=== PATIENT | female | born 1975 | race Caucasian/White ===

== ENCOUNTER 2024-02-07 00:15 | Emergency (ER) | payer OTHER ==
[2024-02-07 00:24] VITALS: BP 142/78; PULSE 74; RESP 18; TEMP 98.8; BMI 39.6
[2024-02-07] MEDS ORDERED: ASPIRIN 81 MG CHEWABLE TABLETS ONE (00:38)
[2024-02-07] MEDS: ASPIRIN 81 MG CHEWABLE TABLETS PO ONE (01:13)
[2024-02-07] MEDS ORDERED: FAMOTIDINE 20 MG TABLET ONE (01:20)
[2024-02-07] MEDS ORDERED: ACETAMINOPHEN 325 MG TABLET (FP) ONE (01:21)
[2024-02-07] MEDS: ACETAMINOPHEN 500 MG TABLET (FP) PO ONE (01:24)
[2024-02-07] MEDS: FAMOTIDINE 10 MG TABLET PO ONE (01:24)
[2024-02-07 01:27] LABS: EOS % 1.7 % (0-4.5); HEMATOCRIT 40.8 % (32.4-45.2); HEMOGLOBIN 13.6 GM/dL (10.7-15.3); LYMPH % 34.1 % (8-40); MCH 30.6 pg (25.7-33.7); MCHC 33.3 g/dl (32.0-36.0); MEAN CELL VOLUME 91.9 fl (80-96); MEAN PLT VOLUME 8.4 fl (7.5-11.1); MONO % 7.9 % (3.8-10.2); NEUT % 55.3 % (42.8-82.8); PLATELET COUNT 297 10^3/uL (134-434); RBC 4.44 M/mm3 (3.60-5.2); RDW 13.6 % (11.6-15.6); WHITE BLOOD COUNT 11.5 K/mm3 (4.0-10.0)
[2024-02-07 01:34] LABS: INR 0.92 (0.83-1.09); PROTHROMBIN TIME (PATIENT) 10.6 SEC (9.7-13.0)
[2024-02-07 01:36] LABS: ACTIVATED PTT 31.4 SECONDS (25.2-36.5)
[2024-02-07 01:44] LABS: POTASSIUM 3.7 mmol/L (3.5-5.1)
[2024-02-07 01:47] LABS: ALBUMIN 3.6 g/dl (3.4-5.0); BLOOD UREA NITROGEN 13.4 mg/dL (7-18); CALCIUM 9.2 mg/dL (8.5-10.1)
[2024-02-07 01:50] LABS: CREATININE 0.9 mg/dL (0.55-1.3)
[2024-02-07 01:52] LABS: BILIRUBIN,TOTAL 0.2 mg/dL (0.2-1); TOT PROT 6.8 g/dl (6.4-8.2)
[2024-02-07 02:03] LABS: HIV INTERPRETATION NEGATIVE (NEGATIVE)
== END 2024-02-07 03:26 | disposition home or self-care (01) ==
LOC: JER 00:15
DX: R07.89 Other chest pain (principal)
CPT/HCPCS: 36415; 71045-TC-FY; 80053; 82550; 83735; 84484; 85025; 85379; 85610; 85730; 86803; 87389; 93005; 93010; 99285-25